=== PATIENT | female | born 1990 | race Caucasian/White ===

== ENCOUNTER 2024-10-14 16:15 | Outpatient (CLI) | payer BC, SELFPAY ==
[2024-10-17 17:09] LABS: HPV Source Cervical; HPV, High Risk by TMA Not Detected
== END 2024-10-14 16:16 | disposition home or self-care (01) ==
PROVIDERS: Visit Provider Obstetrics & Gynecology
DX: E03.8 Other specified hypothyroidism (principal); N91.2 Amenorrhea, unspecified; E66.01 Morbid (severe) obesity due to excess calories; Z12.4 Encounter for screening for malignant neoplasm of cervix; Z13.6 Encounter for screening for cardiovascular disorders; Z13.29 Encounter for screening for other suspected endocrine disorder
CPT/HCPCS: 80061; 84439; 84443; 87624; 87625; 88141; 88142

== ENCOUNTER 2024-10-23 08:26 | Outpatient (CLI) | payer BC, SELFPAY | END 2024-10-23 08:27 | disposition home or self-care (01) | PROVIDERS: PCP Family Medicine; Visit Provider Family Medicine | DX: E78.5 Hyperlipidemia, unspecified (principal); I10 Essential (primary) hypertension | CPT/HCPCS: 80053; 80061 ==

== ENCOUNTER 2025-01-18 16:10 | Outpatient (CLI) | payer BC, SELFPAY | END 2025-01-18 16:11 | disposition home or self-care (01) | LOC: NFLDREF 01-19 23:01 | PROVIDERS: PCP Family Medicine; Referring Provider Family Medicine; Visit Provider Family Medicine | DX: E06.3 Autoimmune thyroiditis (principal) | CPT/HCPCS: 84439; 84443 ==

== ENCOUNTER 2025-03-31 16:16 | Outpatient (CLI) | payer BC, SELFPAY | END 2025-03-31 16:17 | disposition home or self-care (01) | LOC: NFLDREF 04-05 15:59 | PROVIDERS: PCP Family Medicine; Referring Provider Family Medicine; Visit Provider Family Medicine | DX: I10 Essential (primary) hypertension (principal); E06.3 Autoimmune thyroiditis; R73.03 Prediabetes; E03.9 Hypothyroidism, unspecified; E03.8 Other specified hypothyroidism; E66.01 Morbid (severe) obesity due to excess calories | CPT/HCPCS: 80053; 84439; 84443 ==

== ENCOUNTER 2025-07-13 15:56 | Outpatient (CLI) | payer BC, SELFPAY | END 2025-07-13 15:57 | disposition home or self-care (01) | LOC: NFLDREF 07-17 18:23 | PROVIDERS: PCP Family Medicine; Referring Provider Family Medicine; Visit Provider Family Medicine | DX: E06.3 Autoimmune thyroiditis (principal) | CPT/HCPCS: 84439; 84443 ==